=== PATIENT | male | born 1965 | race Caucasian/White ===

== ENCOUNTER 2020-11-14 18:41 | Emergency (ER) | payer BC ==
[~2020-11-14] VITALS: Ht 177.8 cm; Wt 90.9 kg
[2020-11-14 18:45] VITALS: BP 147/81
[2020-11-14] MEDS ORDERED: LIDOcaine 1% 30ml preserv. free vial IJ ONE (19:15)
== END 2020-11-14 20:58 | disposition home or self-care (01) ==
LOC: ER 18:41
DX: S61.213A Laceration without foreign body of left middle finger without damage to nail, initial encounter (principal); I10 Essential (primary) hypertension; Z98.890 Other specified postprocedural states; Z88.8 Allergy status to other drugs, medicaments and biological substances; W45.8XXA Other foreign body or object entering through skin, initial encounter; Y93.89 Activity, other specified; Y92.89 Other specified places as the place of occurrence of the external cause; Y99.8 Other external cause status
CPT/HCPCS: 12001; 99283

== ENCOUNTER 2021-05-15 13:53 | Emergency (ER) | payer BC ==
[~2021-05-15] VITALS: Ht 177.8 cm; Wt 90.9 kg
[2021-05-15 14:09] VITALS: BP 143/84
[2021-05-15] MEDS ORDERED: TETanus/Pertussis (Acell)/Diphther VAC/PF (Tdap-Adult) 0.5ml syringe IMVAC ONE (17:05)
[2021-05-15] MEDS ORDERED: LIDOcaine 1% W/epiNEPHrine 1:100,000 20ml vial SQ ONE (17:05)
[2021-05-15] MEDS ORDERED: CEPH-585 PO (17:49)
[2021-05-15] MEDS ORDERED: cephalexin 250mg capsule PO ONE (17:50)
[2021-05-15] MEDS ORDERED: LORazepam 2 mg/ml vial IV ONE (21:20)
== END 2021-05-15 18:16 | disposition home or self-care (01) ==
LOC: ER 13:54
DX: S51.812A Laceration without foreign body of left forearm, initial encounter (principal); I10 Essential (primary) hypertension; Z98.890 Other specified postprocedural states; Z88.1 Allergy status to other antibiotic agents; W45.8XXA Other foreign body or object entering through skin, initial encounter; Y93.89 Activity, other specified; Y92.89 Other specified places as the place of occurrence of the external cause; Y99.9 Unspecified external cause status
CPT/HCPCS: 12002; 90471; 90715; 99283